=== PATIENT | female | born 1960 | race Caucasian/White ===

== ENCOUNTER 2021-02-11 18:38 | Emergency (ER) | payer OTHER ==
[~2021-02-11] VITALS: Ht 160 cm; Wt 109.0 kg
[~2021-02-11 18:38] MED LIST: LISINOPRIL5 MG OR; LYRICA75 MG; RANITIDINE150 MG OR; SOMA CPD; TENORMIN25 MG; TENORMIN25 MG PO; TRAMADOL HCL100 MG; VICODIN ES1 TAB; [UNRECOGNIZED DRUG - REMARK]
[2021-02-11 20:02] LABS: HEMATOCRIT 23.6 % (37.0-47.0); IMMATURE GRANULOCYTES 0.2 % (0.0-5.0); MEAN CELL VOLUME 81.9 fL CALC (80.0-100.0); MEAN CORPUSCULAR HGB 23.6 pG CALC (26.0-32.0); MEAN CORPUSCULAR HGB CONC 28.8 g/dL CAL (32.0-36.0); NEUT# 2.65 thou/uL (2.00-7.15); RED BLOOD COUNT 2.88 mill/uL (4.20-5.60); RED CELL DISTRI WIDTH 16.7 % (11.5-15.5)
[2021-02-11 20:08] LABS: HEMOGLOBIN 6.8 g/dl (12.0-16.0)
[2021-02-11 20:14] LABS: BUN 14 mg/dL (7-17); BUN/CREATININE RATIO 12 (12-20 (CALC)); CHLORIDE 95 mmol/l (95-108); CREATININE 1.2 mg/dL (0.5-1.0); GFR 46 ML/MIN (>=60 (CALC)); GFR FOR AFR.AMER. 56 ML/MIN (>=60 (CALC)); SGOT/AST 35 u/l (14-36); TOTAL PROTEIN 7.7 g/dL (6.3-8.2)
[2021-02-11 20:15] LABS: INTERNATIONAL NORMALIZED RATIO 1.4 RATIO (0.7-1.3); PROTHROMBIN TIME 14.1 SECONDS (9.0-12.5)
[2021-02-11 20:16] LABS: ALKALINE PHOSPHATASE 127 u/l (38-126); ANION GAP 10 (6-22 (CALC)); BILIRUBIN, TOTAL 1.8 mg/dL (0.0-1.4); CARBON DIOXIDE 31 mmol/l (22-30); POTASSIUM 3.1 mmol/l (3.5-5.1); SODIUM 133 mmol/l (137-146)
[2021-02-12 00:44] VITALS: BP 142/87
== END 2021-02-12 01:15 | DRG 433 ==
LOC: ED 18:38
PROVIDERS: Emergency Medicine
DX: K74.60 Unspecified cirrhosis of liver (principal); R18.8 Other ascites; E87.6 Hypokalemia; D64.9 Anemia, unspecified; D69.6 Thrombocytopenia, unspecified; I10 Essential (primary) hypertension; E05.00 Thyrotoxicosis with diffuse goiter without thyrotoxic crisis or storm; K21.9 Gastro-esophageal reflux disease without esophagitis; R73.03 Prediabetes; Z20.822 Contact with and (suspected) exposure to COVID-19

== ENCOUNTER 2022-07-21 13:53 | Emergency (ER) | payer OTHER ==
[~2022-07-21] VITALS: Ht 160 cm; Wt 68.0 kg
[2022-07-21] VITALS (15 sets, daily range): BP systolic 85–124; BP diastolic 49–67
[2022-07-21] MEDS ORDERED: GENERLAC10 GM/15 M PO (14:57)
[2022-07-21] MEDS ORDERED: LORAZEPAM0.5 MG PO (15:07)
[2022-07-21] MEDS ORDERED: XIFAXAN200 MG PO (15:07)
[2022-07-21] MEDS ORDERED: KLOR-CON M1010 MEQ PO (15:07)
[2022-07-21] MEDS ORDERED: AIMOVIG70 MG/ML IM (15:09)
[2022-07-21] MEDS ORDERED: CYMBALTA30 MG PO (15:12)
[2022-07-21] MEDS ORDERED: WEEKLY-D1.25 MG PO (15:12)
[2022-07-21] MEDS ORDERED: MIDODRINE10 MG PO (15:14)
[2022-07-21] MEDS ORDERED: OMEPRAZOLE20 MG PO (15:15)
[2022-07-21 15:18] LABS: CREATININE 2.1 mg/dL (0.5-1.0); TOTAL PROTEIN 6.2 g/dL (6.3-8.2)
[2022-07-21 15:20] LABS: ALBUMIN 3.7 g/dL (3.2-5.0); BILIRUBIN, TOTAL 0.6 mg/dL (0.02-1.3); POTASSIUM 5.6 mmol/l (3.5-5.1)
[2022-07-21 15:42] LABS: BASO% 0.9 % (0-3); EOS% 6.1 % (0-8); HEMATOCRIT 27.8 % (37.0-47.0); HEMOGLOBIN 8.9 g/dl (12.0-16.0); LYMPH% 8.4 % (15-41); MEAN CORPUSCULAR HGB 29.8 pG CALC (26.0-32.0); MONO% 6.1 % (2-13); NEUT# 2.73 thou/uL (2.00-7.15); NEUT% 78.5 % (42-76); RED BLOOD COUNT 2.99 mill/uL (4.20-5.60); RED CELL DISTRI WIDTH 13.6 % (11.5-15.5)
[2022-07-21 15:56] LABS: INTERNATIONAL NORMALIZED RATIO 1.2 RATIO (0.7-1.3); PROTHROMBIN TIME 12.1 SECONDS (9.0-12.5)
[2022-07-21] MEDS ORDERED: PERCOCET 5/325M1 TAB PO (18:30)
== END 2022-07-21 18:48 | disposition home or self-care (01) ==
LOC: ED 13:53
PROVIDERS: Nurse Practitioner
DX: K74.60 Unspecified cirrhosis of liver (principal); R18.8 Other ascites; I10 Essential (primary) hypertension; E05.00 Thyrotoxicosis with diffuse goiter without thyrotoxic crisis or storm; M79.7 Fibromyalgia; E11.9 Type 2 diabetes mellitus without complications; K21.9 Gastro-esophageal reflux disease without esophagitis

== ENCOUNTER 2022-08-10 00:19 | Emergency (ER) | payer OTHER ==
[~2022-08-10] VITALS: Ht 160 cm; Wt 58.0 kg
[~2022-08-10 00:19] MED LIST changes: +AIMOVIG70 MG/ML IM; +CYMBALTA30 MG PO; +GENERLAC10 GM/15 M PO; +KLOR-CON M1010 MEQ PO; +LORAZEPAM0.5 MG PO; +MIDODRINE10 MG PO; +OMEPRAZOLE20 MG PO; +PERCOCET 5/325M1 TAB PO; +WEEKLY-D1.25 MG PO; +XIFAXAN200 MG PO
[2022-08-10 00:42] VITALS: BP 155/102
[2022-08-10 00:59] LABS: BASO% 0.6 % (0-3); EOS% 3.9 % (0-8); HEMATOCRIT 31.8 % (37.0-47.0); HEMOGLOBIN 10.2 g/dl (12.0-16.0); IMMATURE GRANULOCYTES 0.7 % (0.0-5.0); LYMPH% 8.9 % (15-41); MEAN CELL VOLUME 91.9 fL CALC (80.0-100.0); MEAN CORPUSCULAR HGB 29.5 pG CALC (26.0-32.0); MEAN CORPUSCULAR HGB CONC 32.1 g/dL CAL (32.0-36.0); MONO% 4.1 % (2-13); NEUT# 4.41 thou/uL (2.00-7.15); NEUT% 81.8 % (42-76); RED BLOOD COUNT 3.46 mill/uL (4.20-5.60); RED CELL DISTRI WIDTH 13.7 % (11.5-15.5)
[2022-08-10 01:01] VITALS: BP 149/64
[2022-08-10 01:12] LABS: CREATININE 1.7 mg/dL (0.5-1.0)
[2022-08-10 01:14] LABS: ALBUMIN 4.4 g/dL (3.2-5.0); POTASSIUM 4.2 mmol/l (3.5-5.1); TOTAL PROTEIN 7.3 g/dL (6.3-8.2)
[2022-08-10 01:30] VITALS: BP 144/75
[2022-08-10 02:00] VITALS: BP 142/80
[2022-08-10 02:30] VITALS: BP 148/77
[2022-08-10] MEDS ORDERED: LORTAB 1010 MG PO (04:37)
[2022-08-10] MEDS ORDERED: ULTRAM50 MG PO (04:59)
== END 2022-08-10 05:13 | disposition home or self-care (01) | DRG 392 ==
LOC: ED 00:19
PROVIDERS: Emergency Medicine
DX: R10.9 Unspecified abdominal pain (principal); K74.60 Unspecified cirrhosis of liver; I10 Essential (primary) hypertension; E05.00 Thyrotoxicosis with diffuse goiter without thyrotoxic crisis or storm; M79.7 Fibromyalgia; K21.9 Gastro-esophageal reflux disease without esophagitis; R73.03 Prediabetes
CPT/HCPCS: J2060

== ENCOUNTER 2022-11-04 01:34 | Inpatient (IN) | payer OTHER ==
[~2022-11-04] VITALS: Ht 160 cm; Wt 67.6 kg
[2022-11-04] VITALS (40 sets, daily range): BP systolic 81–137; BP diastolic 44–85
[~2022-11-04 01:34] MED LIST changes: +LORTAB 1010 MG PO; +ULTRAM50 MG PO
[2022-11-04 02:01] LABS: BASO% 0.3 % (0-3); EOS% 0.6 % (0-8); HEMATOCRIT 34.9 % (37.0-47.0); IMMATURE GRANULOCYTES 0.9 % (0.0-5.0); LYMPH% 3.3 % (15-41); MEAN CELL VOLUME 88.4 fL CALC (80.0-100.0); MEAN CORPUSCULAR HGB 29.4 pG CALC (26.0-32.0); MEAN CORPUSCULAR HGB CONC 33.2 g/dL CAL (32.0-36.0); NEUT# 12.86 thou/uL (2.00-7.15); NEUT% 87.9 % (42-76); RED BLOOD COUNT 3.95 mill/uL (4.20-5.60); RED CELL DISTRI WIDTH 13.4 % (11.5-15.5)
[2022-11-04 02:03] LABS: HEMOGLOBIN 11.6 g/dl (12.0-16.0)
[2022-11-04 02:04] LABS: URINE BILIRUBIN - DIPSTICK Negative (NEGATIVE); URINE BLOOD DIPSTICK Negative (NEGATIVE); URINE GLUCOSE - DIPSTICK Negative (NEGATIVE); URINE KETONE Negative (NEGATIVE); URINE LEUK ESTERASE Negative (NEGATIVE); URINE NITRITE - DIPSTICK Negative (Negative); URINE PROTEIN - DIPSTICK Negative (NEG-TRACE); URINE UROBILINOGEN - DIPSTICK 0.2 E.U./dL (0.2)
[2022-11-04 02:07] LABS: URINE COLOR Yellow
--- NOTE | 2022-11-04 02:07 | NUR ---
PT CAME VIA EMS FOR BEING UNRESPONSIVE. PT WENT TO ROOM 11 FOR TRIAGE AND CARE. SON IS AT BEDSIDE
[2022-11-04 02:11] LABS: ALBUMIN 3.1 g/dL (3.2-5.0); BILIRUBIN, TOTAL 1.4 mg/dL (0.02-1.3); CREATININE 2.7 mg/dL (0.5-1.0); POTASSIUM 4.6 mmol/l (3.5-5.1); TOTAL PROTEIN 6.6 g/dL (6.3-8.2)
[2022-11-04 02:19] LABS: INTERNATIONAL NORMALIZED RATIO 1.2 RATIO (0.7-1.3); PROTHROMBIN TIME 11.6 SECONDS (9.0-12.5)
--- NOTE | 2022-11-04 02:45 | NUR ---
PT IS SHIVERING AT THIS TIME. WARM BLANKETS WERE PUT ON THE PT. MORGAN INSERTED AND RESP HERE TO DO AN ABG.
[2022-11-04 04:03] LABS: TSH, 3RD GENERATION 2.73 uIU/mL (0.47 - 4.68)
--- NOTE | 2022-11-04 04:42 | NUR ---
REPORT WAS GIVEN TO NOLAN AND PT WAS TAKEN UP TO ICU 1
--- NOTE | 2022-11-04 05:20 | NUR ---
0430 - PATIENT TO ICU BED 1 FROM ED ON STRETCHER, PATIENT TRANSFERED TO INPATIENT BED, PATIENT IS NOT AWAKE OR ALERT, DOES NOT RESPOND TO VOICE, EXTERNAL STIMULUS OR PAIN AT THIS TIME, RESPIRATIONS EVEN AND UNLABORED ON ROOM AIR, NG TUBE IN PLACE AND PATENT FOR MED ADMINISTRATION, NO S/S OF PAIN OR DISCOMFORT, NO S/S OF DISTRESS NOTED.
--- NOTE | 2022-11-04 07:10 | NUR ---
Patient lying in bed responsive to pain only. Pupils equal and reactive. Patient hands/legs jerk/eyes partially open when painful stimuli introduced. Patient is SR on the monitor. Breathing even and unlabored. NG noted in L nare. NAD noted. Will continue to monitor.
--- NOTE | 2022-11-04 08:00 | NUR ---
Patient repositioned to R side. Patient is not AO. Responds to painful stimuli only. ST on the monitor. HOB elevated to 30 degrees. Breathing even and unlabored. Lungs clear to ascultation. Bed in low position. Will continue to monitor.
--- NOTE | 2022-11-04 09:44 | NUR ---
Dr. Nadiya hilario at bedside. Blood and urine cx ordered. Patient ST on the monitor. Family at bedside. Patient repositioned to L side. Will continue to monitor.
[2022-11-04 10:08] LABS: ALBUMIN 2.5 g/dL (3.2-5.0); CREATININE 2.2 mg/dL (0.5-1.0); POTASSIUM 4.9 mmol/l (3.5-5.1); TOTAL PROTEIN 5.7 g/dL (6.3-8.2)
[2022-11-04 10:20] LABS: HEMATOCRIT 31.7 % (37.0-47.0); HEMOGLOBIN 10.3 g/dl (12.0-16.0); MEAN CELL VOLUME 88.8 fL CALC (80.0-100.0); MEAN CORPUSCULAR HGB 28.9 pG CALC (26.0-32.0); MEAN CORPUSCULAR HGB CONC 32.5 g/dL CAL (32.0-36.0); RED BLOOD COUNT 3.57 mill/uL (4.20-5.60); RED CELL DISTRI WIDTH 13.3 % (11.5-15.5)
[2022-11-04 13:14] LABS: HEMATOCRIT 29.2 % (37.0-47.0); HEMOGLOBIN 9.9 g/dl (12.0-16.0); MEAN CELL VOLUME 87.4 fL CALC (80.0-100.0); MEAN CORPUSCULAR HGB 29.6 pG CALC (26.0-32.0); MEAN CORPUSCULAR HGB CONC 33.9 g/dL CAL (32.0-36.0); RED BLOOD COUNT 3.34 mill/uL (4.20-5.60); RED CELL DISTRI WIDTH 13.4 % (11.5-15.5)
[2022-11-04 13:46] LABS: ALBUMIN 2.4 g/dL (3.2-5.0); CREATININE 2.2 mg/dL (0.5-1.0); TOTAL PROTEIN 5.4 g/dL (6.3-8.2)
--- NOTE | 2022-11-04 13:53 | NUR ---
Patient given 30mL of lactulose via enema at 1310. Patient repositioned to L side. ST on the monitor. Will continue to monitor.
--- NOTE | 2022-11-04 13:58 | NUR ---
S: NEEL LAINEZ is a 62 F who presents with unresponsiveness, hepatic encephalopathy, and hyperammonemia. She has a history of liver cirrhosis. All medications in patient's chart were reviewed. O: VS: BP 137/85, P 121, RR 25,T 97.6 W 67.6kg, HT 63 in, Scr=2.2, CrCl= 25.1 ml/min A: Blood culture is pending. Urine culture is pending. P: Patient is on Zosyn 3.375 g IV q6h. Vancomycin ordered for pharmacy to dose. Start Vancomycin 1 g IV Q36H. Vancomycin trough is drawn before the 3rd dose on 11/07/22@1230. Vancomycin goal trough is between 10-20 mcg/ml. Pharmacy will follow and or advise on antibiotics use as needed.
--- NOTE | 2022-11-04 14:25 | NUR ---
Full linen change, patient cleaned. Enema lactulose clamp d/c. ST on the monitor. Family at bedside. Awaiting transfer acceptance from [facility]. Bed in low position. Call light next to L hand. Will continue to monitor.
--- NOTE | 2022-11-04 14:45 | NUR ---
SPOKE WITH LUDWIN AT [facility] WHO STATES PTS INSURANCE IS OUT OF NETWORK. NOTIFIED PTS FAMILY ALECIA AND LIZBETH LAINEZ THAT PTS INSURANCE MAY NOT PAY FOR VISIT BECAUSE IT IS OUT OF NETWORK, BUT DUE TO EMERGENCY STATUS WAS UNLIKELY. FAMILY REQUESTED TO CONTINUE TRANSFER,
--- NOTE | 2022-11-04 16:00 | NUR ---
Patient respositioned to L side. Family at bedside. NAD noted. Will continue to monitor.
--- NOTE | 2022-11-04 19:32 | NUR ---
Patient left the unit via stretcher with [facility]. Family at bedside made aware of acceptance received from Dr. Oumar Stevens at [facility] to bed 5A04. Call received from Yojana at the transport center. Patient received Sandostatin bolus and Sandostatin drip started. Patient recieved 150 mL of Albumin. Patient responsive to pain, PERRL, NG tube noted in L nare, Patietn will bite down during oral care. Patient's sister Roma updated on patient's ETA. Report called to [facility] with ETA information.
== END 2022-11-04 18:25 | disposition short-term general hospital (02) | DRG 871 ==
LOC: ED 01:34 → ED-I 02:28 → ED 02:28 → ED-I 03:00 → ED 03:34 → ICU 03:34
PROVIDERS: Emergency Medicine; ADMIT Student in an Organized Health Care Education/Training Program; ATTEND Student in an Organized Health Care Education/Training Program
PROC: 0T9B70Z Drainage of Bladder with Drainage Device, Via Natural or Artificial Opening (ICD-10-PCS; principal; 2022-11-04)
DX: A41.9 Sepsis, unspecified organism (principal); I85.11 Secondary esophageal varices with bleeding; R65.21 Severe sepsis with septic shock; K65.2 Spontaneous bacterial peritonitis; E72.20 Disorder of urea cycle metabolism, unspecified; R18.8 Other ascites; E87.20 Acidosis, unspecified; N17.9 Acute kidney failure, unspecified; K76.82 Hepatic encephalopathy; K74.60 Unspecified cirrhosis of liver; I12.9 Hypertensive chronic kidney disease with stage 1 through stage 4 chronic kidney disease, or unspecified chronic kidney disease; N18.9 Chronic kidney disease, unspecified; E05.00 Thyrotoxicosis with diffuse goiter without thyrotoxic crisis or storm; E87.6 Hypokalemia; D69.6 Thrombocytopenia, unspecified; D64.9 Anemia, unspecified; R79.89 Other specified abnormal findings of blood chemistry; K46.9 Unspecified abdominal hernia without obstruction or gangrene; Z76.82 Awaiting organ transplant status; Z20.822 Contact with and (suspected) exposure to COVID-19
CPT/HCPCS: J2354; P9047; S0164